=== PATIENT | male | born 1960 | race Caucasian/White ===

== ENCOUNTER 2017-12-05 13:35 | Emergency (ER) | payer OTHER ==
[~2017-12-05] VITALS: Ht 182.8 cm; Wt 93.0 kg
[~2017-12-05 13:35] MED LIST: ARIPIPRAZOLE5 MG PO; AUGMENTIN 875 M1 TAB PO; BACTROBAN OINT22 GM PO; BUPROPION HYDR150 M4 PO; CITALOPRAM40 MG PO; DIVALPROEX SOD500 M1 PO; KLONOPIN1 MG PO; MIRTAZAPINE15 M1 PO; Nicorette Gum4 MG PO; PROTONIX TR40 M1 PO; ULTRAM50 MG PO; VALIUM10 MG PO; VITAMIN D50000 I3 PO; Vicodin 5/325 PO
[2017-12-05 14:58] LABS: BASO # 0.1 10*3/uL (0.0-0.1); BASO % 0.8 % (0.0-1.0); EOS # 0.2 10*3/uL (0.0-0.4); EOS % 2.9 % (1.0-4.0); HEMATOCRIT 41.1 % (42.0-52.0); HEMOGLOBIN 13.9 g/dl (14.0-18.0); LYMPH # 2.3 10*3/uL (1.3-4.4); LYMPH % 35.6 % (27.0-41.0); MEAN CELL VOLUME 88.2 fl (80.0-94.0); MEAN CORPUSCULAR HGB 29.8 pg (27.0-31.0); MEAN CORPUSCULAR HGB CONC 33.8 g/dl (33.0-37.0); MEAN PLATELET VOLUME 9.1 fl (9.6-12.3); MONO # 0.7 10*3/uL (0.1-1.0); MONO % 9.9 % (3.0-9.0); NEUT # 3.3 10*3/uL (2.3-7.9); NEUT % 50.6 % (47.0-73.0); PLATELET COUNT AUTOMATED 223 10*3/uL (130-400); RED BLOOD COUNT 4.66 10*6/uL (4.50-5.90); RED CELL DISTRI WIDTH 13.6 % (0-14.5); WHITE BLOOD COUNT 6.6 10*3/uL (4.8-10.8)
[2017-12-05 15:23] LABS: ALBUMIN 3.9 gm/dl (3.1-4.5); ALKALINE PHOSPHATASE 58 U/L (45-117); BUN 11 mg/dl (7-24); CHLORIDE 105 mmol/L (98-107); CREATININE 1.11 mg/dL (0.70-1.30); POTASSIUM 4.5 mmol/L (3.5-5.1); SGOT/AST 13 IU/L (3-35); SGPT/ALT 26 U/L (12-78); SODIUM 141 mmol/L (136-145); TOTAL PROTEIN 7.3 gm/dL (6.4-8.2)
[2017-12-05 16:10] VITALS: BP 150/94
== END 2017-12-05 16:03 | disposition home or self-care (01) ==
LOC: ED 13:35
PROVIDERS: Student in an Organized Health Care Education/Training Program
DX: N50.812 Left testicular pain (principal); R10.9 Unspecified abdominal pain; M54.9 Dorsalgia, unspecified; F17.200 Nicotine dependence, unspecified, uncomplicated; F10.10 Alcohol abuse, uncomplicated; Z79.899 Other long term (current) drug therapy

== ENCOUNTER 2017-12-12 08:48 | Emergency (ER) | payer OTHER ==
[~2017-12-12] VITALS: Wt 95.3 kg
[2017-12-12 09:17] LABS: BASO # 0.1 10*3/uL (0.0-0.1); EOS # 0.3 10*3/uL (0.0-0.4); EOS % 4.7 % (1.0-4.0); HEMATOCRIT 40.2 % (42.0-52.0); HEMOGLOBIN 13.9 g/dl (14.0-18.0); LYMPH # 2.4 10*3/uL (1.3-4.4); LYMPH % 38.9 % (27.0-41.0); MEAN CELL VOLUME 89.1 fl (80.0-94.0); MEAN CORPUSCULAR HGB 30.8 pg (27.0-31.0); MEAN CORPUSCULAR HGB CONC 34.6 g/dl (33.0-37.0); MEAN PLATELET VOLUME 9.2 fl (9.6-12.3); MONO # 0.6 10*3/uL (0.1-1.0); MONO % 10.3 % (3.0-9.0); NEUT # 2.8 10*3/uL (2.3-7.9); NEUT % 44.9 % (47.0-73.0); PLATELET COUNT AUTOMATED 219 10*3/uL (130-400); RED BLOOD COUNT 4.51 10*6/uL (4.50-5.90); RED CELL DISTRI WIDTH 13.4 % (0-14.5); WHITE BLOOD COUNT 6.2 10*3/uL (4.8-10.8)
[2017-12-12 09:26] LABS: ACT PARTIAL THROMBO TIME 23.5 SECONDS (20.8-31.5)
[2017-12-12 09:33] LABS: ALBUMIN 3.7 gm/dl (3.1-4.5); ALKALINE PHOSPHATASE 69 U/L (45-117); BUN 13 mg/dl (7-24); CHLORIDE 108 mmol/L (98-107); CREATININE 1.15 mg/dL (0.70-1.30); POTASSIUM 4.7 mmol/L (3.5-5.1); SGOT/AST 14 IU/L (3-35); SGPT/ALT 24 U/L (12-78); SODIUM 142 mmol/L (136-145); TOTAL PROTEIN 7.1 gm/dL (6.4-8.2)
[2017-12-12 09:35] LABS: TROPONIN I < 0.015 ng/ml (<0.045)
[2017-12-12 09:58] VITALS: BP 133/90
== END 2017-12-12 11:14 | disposition home or self-care (01) ==
LOC: ED 08:48
PROVIDERS: Emergency Medicine
DX: R07.9 Chest pain, unspecified (principal); R53.1 Weakness; R10.9 Unspecified abdominal pain; Z79.899 Other long term (current) drug therapy

== ENCOUNTER 2018-02-03 13:53 | Inpatient (IN) | payer OTHER ==
[~2018-02-03] VITALS: Ht 182.8 cm; Wt 98.0 kg
--- NOTE | ~2018-02-03 | CON ---
[place], [place] REPORT OF CONSULTATION NAME: GONZALEZ CASPER UNIT #: [id number] ROOM: 402 DOCTOR: AARON MCGILLALEKS BIRTHDATE: [birth year] DOS: 02/03/2018 GASTROENDOSCOPIC CONSULTATION HISTORY OF PRESENT ILLNESS: This gentleman is 57-year-old, who presented with epigastric distress, atypical chest pain, subxiphoid pain, and known gastroesophageal reflux disease. The patient has been investigated in [facility] a month and half ago with EGD and colonoscopy. The patient on PPI therapy. At the present time, undergoing investigation for ruling out cardiac etiology chest pain. PAST MEDICAL HISTORY: Associated with GERD, chest pain, abdominal epigastric pain, and urinary hesitancy. The patient also with vagal nerve stimulator, chronic back pain, testicular pain, and major depression. PAST SURGICAL HISTORY: Appendectomy and tonsillectomy. SOCIAL HISTORY: A smoker, nonalcohol consumer, drinking a pot of coffee per day, and nicotine dependence. Smoking a pack of cigarettes per day. FAMILY HISTORY: Noncontributory. ALLERGIES: To no known medications. MEDICATIONS: Medication list has been reviewed. REVIEW OF SYSTEMS: HEENT: Denies double vision, blurred vision. RESPIRATORY: Denies acute shortness of breath. CARDIOVASCULAR: Denies typical chest pain; however subxiphoid pain. DIGESTIVE SYSTEM: No hematemesis, no hematochezia. Subxiphoid pain. PHYSICAL EXAMINATION: VITAL SIGNS: Stable. HEENT: Head normocephalic, nontraumatic. Mouth and buccal mucosa benign. Poor dental hygiene. NECK: Supple, no thyromegaly. No cervical lymphadenopathy. CHEST: Symmetric anatomy, equal expansion. No wheeze, no rhonchi. HEART: Normal sinus rhythm, no gallop, no murmur. ABDOMEN: Slightly globular. No hepato-organomegaly. Bowel sounds present. No pulsatile mass. EXTREMITIES: No cyanosis, no pedal edema. NEUROLOGIC: Alert, oriented to time, place, person. IMPRESSION: Atypical chest pain, ruling out hiatal hernia, rule out gastroesophageal reflux disease, on chronic PPI, pain medication dependence, consumer of large volume of caffeinated beverages, a pot of coffee and nicotine daily and this could be the culprit in subxiphoid pain that he is experiencing. PLAN AND DISCUSSION: Continuation with Protonix 40 mg daily as well as starting [place], [place] REPORT OF CONSULTATION NAME: TREMAYNEGONZALEZ Rudy UNIT #: [id number] ROOM: 402 DOCTOR: ALEKS WALKER MD BIRTHDATE: [birth year] this gentleman on Gaviscon 1 tablet a.m. and at bedtime. Cardiologic workup in progress and the patient advised to abstain from large volume caffeine and nicotine indulgence. ALEKS WALKER MD CM:CONSTR:REPORT OF CONSULTATION 40 02/04/18 0620 interface
[2018-02-03 13:58] VITALS: BP 124/97
[2018-02-03 14:20] LABS: BASO % 0.7 % (0.0-1.0); EOS # 0.2 10*3/uL (0.0-0.4); EOS % 2.8 % (1.0-4.0); HEMATOCRIT 42.8 % (42.0-52.0); HEMOGLOBIN 14.5 g/dl (14.0-18.0); LYMPH # 2.3 10*3/uL (1.3-4.4); MEAN CELL VOLUME 88.4 fl (80.0-94.0); MEAN CORPUSCULAR HGB CONC 33.9 g/dl (33.0-37.0); MEAN PLATELET VOLUME 9.1 fl (9.6-12.3); MONO # 0.6 10*3/uL (0.1-1.0); MONO % 9.8 % (3.0-9.0); NEUT # 2.8 10*3/uL (2.3-7.9); NEUT % 47.5 % (47.0-73.0); PLATELET COUNT AUTOMATED 220 10*3/uL (130-400); RED BLOOD COUNT 4.84 10*6/uL (4.50-5.90); RED CELL DISTRI WIDTH 12.8 % (0-14.5); WHITE BLOOD COUNT 5.8 10*3/uL (4.8-10.8)
[2018-02-03 14:31] LABS: ACT PARTIAL THROMBO TIME 23.7 SECONDS (20.8-31.5)
[2018-02-03 14:38] LABS: ALBUMIN 3.8 gm/dl (3.1-4.5); ALKALINE PHOSPHATASE 61 U/L (45-117); BUN 12 mg/dl (7-24); CHLORIDE 105 mmol/L (98-107); CREATININE 1.06 mg/dL (0.70-1.30); POTASSIUM 4.2 mmol/L (3.5-5.1); SGOT/AST 15 IU/L (3-35); SGPT/ALT 26 U/L (12-78); SODIUM 139 mmol/L (136-145); TOTAL PROTEIN 7.4 gm/dL (6.4-8.2)
[2018-02-03 14:45] LABS: TROPONIN I < 0.015 ng/ml (<0.045)
[2018-02-03 14:48] VITALS: BP 129/80
[2018-02-03 15:00] VITALS: BP 138/90
[2018-02-03] MEDS ORDERED: FLOMAX0.4 MG PO (15:20)
[2018-02-03] MEDS ORDERED: NEURONTIN300 MG PO (15:21)
[2018-02-03] MEDS ORDERED: TRAZODONE50 MG PO (15:21)
[2018-02-03] MEDS ORDERED: PANTOPRAZOLE SO40 MG PO (15:21)
[2018-02-03] MEDS ORDERED: BENADRYL ALLERG25 M5 PO (15:23)
[2018-02-03 16:00] VITALS: BP 138/90
[2018-02-03 20:00] VITALS: BP 143/87
== END 2018-02-03 23:58 | disposition left against medical advice (07) | DRG 313 ==
LOC: ED 13:53 → EDHOLD 14:20 → 4E 14:38
PROVIDERS: Emergency Medicine
DX: R07.9 Chest pain, unspecified (principal); E83.41 Hypermagnesemia; F33.1 Major depressive disorder, recurrent, moderate; G89.29 Other chronic pain; F17.210 Nicotine dependence, cigarettes, uncomplicated; F41.1 Generalized anxiety disorder; N40.0 Benign prostatic hyperplasia without lower urinary tract symptoms; R55 Syncope and collapse; K21.9 Gastro-esophageal reflux disease without esophagitis; M54.9 Dorsalgia, unspecified; Z53.21 Procedure and treatment not carried out due to patient leaving prior to being seen by health care provider; Z96.89 Presence of other specified functional implants; Z83.3 Family history of diabetes mellitus; Z83.79 Family history of other diseases of the digestive system; Z72.89 Other problems related to lifestyle; Z80.8 Family history of malignant neoplasm of other organs or systems; Z79.899 Other long term (current) drug therapy; Z71.6 Tobacco abuse counseling; Z87.898 Personal history of other specified conditions

== ENCOUNTER 2018-11-13 15:35 | Emergency (ER) | payer MEDICARE ==
[~2018-11-13] VITALS: Ht 182.8 cm; Wt 104.3 kg
[2018-11-13 15:35] VITALS: BP 130/103
[~2018-11-13 15:35] MED LIST changes: +BENADRYL ALLERG25 M5 PO; +FLOMAX0.4 MG PO; +NEURONTIN300 MG PO; +PANTOPRAZOLE SO40 MG PO; +TRAZODONE50 MG PO
[2018-11-13 16:39] LABS: BASO % 0.5 % (0.0-1.0); EOS % 0.1 % (1.0-4.0); HEMATOCRIT 43.7 % (42.0-52.0); HEMOGLOBIN 15.4 g/dl (14.0-18.0); LYMPH # 1.4 10*3/uL (1.3-4.4); LYMPH % 17.8 % (27.0-41.0); MEAN CORPUSCULAR HGB 30.3 pg (27.0-31.0); MEAN CORPUSCULAR HGB CONC 35.2 g/dl (33.0-37.0); MEAN PLATELET VOLUME 9.5 fl (9.6-12.3); MONO % 12.1 % (3.0-9.0); NEUT # 5.4 10*3/uL (2.3-7.9); NEUT % 69.1 % (47.0-73.0); PLATELET COUNT AUTOMATED 172 10*3/uL (130-400); RED BLOOD COUNT 5.08 10*6/uL (4.50-5.90); RED CELL DISTRI WIDTH 12.7 % (0-14.5); WHITE BLOOD COUNT 7.8 10*3/uL (4.8-10.8)
[2018-11-13 16:55] LABS: ALBUMIN 3.8 gm/dl (3.1-4.5); ALKALINE PHOSPHATASE 57 U/L (45-117); BUN 17 mg/dl (7-24); CHLORIDE 103 mmol/L (98-107); CREATININE 1.06 mg/dL (0.70-1.30); POTASSIUM 3.7 mmol/L (3.5-5.1); SGOT/AST 19 IU/L (3-35); SGPT/ALT 28 U/L (12-78); SODIUM 135 mmol/L (136-145); TOTAL PROTEIN 6.9 gm/dL (6.4-8.2)
[2018-11-13] MEDS ORDERED: PROAIR HFA8.5 GM INH (18:29)
[2018-11-13] MEDS ORDERED: PREDNISONE50 MG PO (18:29)
[2018-11-13] MEDS ORDERED: DOXYCYCLINE100 M3 PO (18:29)
[2018-11-13] MEDS ORDERED: TESSALON PERLE100 MG PO (18:29)
[2018-12-16] MEDS ORDERED: ASPIRIN81 M1 PO (23:48)
[2018-12-17] MEDS ORDERED: VITAMIN B1250 MCG PO (15:36)
[2018-12-18] MEDS ORDERED: NORCO 5-325 TA1 EACH PO (16:58)
== END 2018-11-13 18:32 | disposition home or self-care (01) ==
LOC: ED 15:35
PROVIDERS: Nurse Practitioner Family
DX: J18.9 Pneumonia, unspecified organism (principal); F17.210 Nicotine dependence, cigarettes, uncomplicated; Z79.899 Other long term (current) drug therapy

== ENCOUNTER 2019-10-08 07:49 | Emergency (ER) | payer MEDICARE ==
[~2019-10-08] VITALS: Ht 182.8 cm; Wt 102.1 kg
[~2019-10-08 07:49] MED LIST changes: +ASPIRIN81 M1 PO; +DOXYCYCLINE100 M3 PO; +NORCO 5-325 TA1 EACH PO; +PREDNISONE50 MG PO; +PROAIR HFA8.5 GM INH; +TESSALON PERLE100 MG PO; +VITAMIN B1250 MCG PO
[2019-10-08 07:50] VITALS: BP 149/65
[2019-10-08 08:42] LABS: BILIRUBIN NEGATIVE (NEGATIVE); BLOOD NEGATIVE (NEGATIVE); CLARITY CLEAR (CLEAR); COLOR YELLOW (YELLOW); GLUCOSE NEGATIVE (NEGATIVE); KETONE NEGATIVE (NEGATIVE); LEUKO ESTERASE NEGATIVE (NEGATIVE); NITRITE NEGATIVE (NEGATIVE); PH 5.5 (5.0-9.0); SPECIFIC GRAVITY 1.025 (1.005-1.030); UROBILINOGEN 0.2 E.U./dl (0.2-1.0)
[2019-10-08 08:52] LABS: BASO # 0.1 10*3/uL (0.0-0.1); BASO % 0.8 % (0.0-1.0); EOS # 0.3 10*3/uL (0.0-0.4); EOS % 3.2 % (1.0-4.0); HEMATOCRIT 43.5 % (42.0-52.0); HEMOGLOBIN 14.4 g/dl (14.0-18.0); LYMPH # 2.8 10*3/uL (1.3-4.4); LYMPH % 32.8 % (27.0-41.0); MEAN CELL VOLUME 86.3 fl (80.0-94.0); MEAN CORPUSCULAR HGB 28.6 pg (27.0-31.0); MEAN CORPUSCULAR HGB CONC 33.1 g/dl (33.0-37.0); MEAN PLATELET VOLUME 9.1 fl (9.6-12.3); NEUT # 4.5 10*3/uL (2.3-7.9); PLATELET COUNT AUTOMATED 254 10*3/uL (130-400); RED BLOOD COUNT 5.04 10*6/uL (4.50-5.90); RED CELL DISTRI WIDTH 13.2 % (0-14.5); WHITE BLOOD COUNT 8.6 10*3/uL (4.8-10.8)
[2019-10-08 09:08] LABS: ALBUMIN 3.1 gm/dl (3.1-4.5); ALKALINE PHOSPHATASE 81 U/L (45-117); BUN 15 mg/dl (7-24); CHLORIDE 111 mmol/L (98-107); CREATININE 0.98 mg/dL (0.70-1.30); LIPASE 128 U/L (73-393); POTASSIUM 3.8 mmol/L (3.5-5.1); SGOT/AST 9 IU/L (3-35); SGPT/ALT 24 U/L (12-78); SODIUM 140 mmol/L (136-145); TOTAL PROTEIN 6.8 gm/dL (6.4-8.2)
[2019-10-08 09:19] LABS: TROPONIN I < 0.015 ng/ml (<0.045)
[2019-10-08 09:25] LABS: MUCOUS 1+
== END 2019-10-08 10:49 | disposition left against medical advice (07) ==
LOC: ED 07:49
PROVIDERS: Emergency Medicine
DX: K65.1 Peritoneal abscess (principal); N50.812 Left testicular pain; K21.9 Gastro-esophageal reflux disease without esophagitis; F17.210 Nicotine dependence, cigarettes, uncomplicated; M79.604 Pain in right leg; M79.605 Pain in left leg; R20.0 Anesthesia of skin; Z79.899 Other long term (current) drug therapy; Z79.82 Long term (current) use of aspirin; Z90.49 Acquired absence of other specified parts of digestive tract